=== PATIENT | female | born 1975 | race Hispanic/Latino ===

== ENCOUNTER 2021-08-20 20:31 | Emergency (ER) | payer SELFPAY ==
[~2021-08-20] VITALS: Ht 167.6 cm; Wt 64.4 kg
[2021-08-20] MEDS ORDERED: IPRATROPIUM/ALBUTEROL SULFATE 3 ML SOLUTION IH ONE (21:00)
[2021-08-20] MEDS ORDERED: GUAIFENESIN-CODEINE 5 ML SYRUP PO ONE (21:00)
[2021-08-20 21:06] LABS: BASOPHILS % (AUTO) 0.2 % (0.0-5.0); EOSINOPHILS % (AUTO) 22.5 % (0.0-8.0); HEMATOCRIT 36.7 % (36-48); LYMPHOCYTES % (AUTO) 33.7 % (21.0-51.0); MEAN CORPUSCULAR HGB CONC 33.2 g/dL (32.0-36.0); MEAN CORPUSCULAR VOLUME 84.4 fL (79-99); MONOCYTES % (AUTO) 8.3 % (3.0-13.0); PLATELET COUNT (AUTO) 294 K/uL (130-400); RED BLOOD CELL COUNT(AUTO) 4.35 MIL/uL (4.00-5.50); RED CELL DISTRIBUTION WIDTH 12.5 % (11.0-15.5)
[2021-08-20 21:23] LABS: CREATININE 0.6 mg/dL (0.5-1.5); POTASSIUM 3.6 mmol/L (3.5-5.1)
[2021-08-20 21:28] LABS: ALBUMIN 3.7 g/dL (3.5-5.0); BILIRUBIN,TOTAL 0.3 mg/dL (0.2-1.0); TOTAL PROTEIN, SERUM 7.1 g/dL (6.0-8.3)
[2021-08-20] MEDS ORDERED: AZITHROMYCIN 250 MG TABLET PO ONE (22:00)
[2021-08-20] MEDS ORDERED: DEXAMETHASONE 4 MG TAB PO SCH (22:00)
[2021-08-20] MEDS ORDERED: CEFTRIAXONE 1G VIAL IM ONE (22:30)
[2021-08-20] MEDS ORDERED: DOXY100C5 PO (23:20)
[2021-08-20] MEDS ORDERED: METH4TAB3 PO (23:20)
[2021-08-20] MEDS ORDERED: GUAI120L62 PO (23:20)
[2021-08-20 23:37] VITALS: BP 111/62
== END 2021-08-20 23:43 | disposition home or self-care (01) ==
LOC: EDH 20:31
DX: R05.9 Cough, unspecified (principal); R07.89 Other chest pain; Z79.52 Long term (current) use of systemic steroids; Z79.899 Other long term (current) drug therapy
CPT/HCPCS: 36415; 71045; 80053; 85025; 94640; 96372; 99284; J0696 ×2; J8540